=== PATIENT | female | born 1980 | race Caucasian/White ===

== ENCOUNTER 2024-11-12 09:22 | Emergency (ER) | payer OTHER, SELFPAY ==
[2024-11-12 09:29] VITALS: BP 124/84
[2024-11-12 10:22] VITALS: BMI 25.4
[2024-11-12 10:26] LABS: % Basophils 0.3 % (0-2); % Eosinophils 1.9 % (0-6); % Immature Granulocytes 0.2 % (0-0.5); % Lymphocytes 37.5 % (20.5-51.1); % Monocytes 6.7 % (1.7-9.3); % Neutrophils 53.4 % (42.2-75.2); Absolute Eosinophils 0.2 10^3/uL (0-0.7); Absolute Lymphocytes 3.5 10^3/uL (1.2-3.4); Absolute Monocytes 0.6 10^3/uL (0.1-0.6); Hematocrit 35.3 % (37.0-47.0); Hemoglobin 12.4 g/dL (12.0-16.0); Mean Corp Hgb Conc. 35.1 g/dL (33.0-37.0); Mean Corpuscular Volume 85.5 fL (81.0-99.0); Mean Platelet Volume 8.3 fL (7.4-10.4); Nucleated Red Blood Cells % 0 %; Platelet Count 359 10^3/uL (130-400); Red Blood Cell Count 4.13 10^6/uL (4.20-5.40); Red Cell Dist. Width 13.5 % (11.5-14.5); White Blood Cell Count 9.4 10^3/uL (4.8-10.8)
[2024-11-12] MEDS: TORADOL 15 MG IV (10:30)
--- NOTE | 2024-11-12 10:31 | ED.GENMED ---
History of Present Illness
General
Chief Complaint: Dental Problem
Source: patient and family
Exam Limitations: none
Time Seen by Provider: 11/12/24 09:56
Nursing documentation reviewed up to this point in time: agreed with
History of Present Illness
History of Present Illness:
The patient is a 44-year-old female presenting with facial swelling and pain. The patient reports that the swelling is primarily located around the parotid area and has been worsening despite taking antibiotics. The patient notes that the swelling
is likely related to a salivary gland issue, specifically concerning the parotid gland. No difficulty swallowing or breathing no fevers. She has not been using any sour candies or anything to stimulate the salivary glands at home. Patient has
been taking Keflex.
Past History
Past History
ED Past Medical History: Psychiatric (Depression), Other (Last seen at for back pain 11/2010. Mom states 'she's always had muscle spasms in her back.') and Other (Previous ruptured ovarian cysts, Migraines )
ED Past Surgical History: None
Social History
Tobacco: Former smoker
Alcohol: Occasional
Drug: None
Personal: Single
Living: with family
Employment: Employed (office work)
Family History
Family History: Other (Hypertension, hyperlipidemia, diabetes)
Review of Systems
Review of Systems
Allergies reviewed?: Yes
All Other Systems: ROS reviewed and negative except as documented in HPI and ROS
Phy Exam
Physical Exam
Physical Exam:
GENERAL: Alert , in no apparent distress
EYE: pupils equal and reactive
NECK: Supple, no significant adenopathy.
ENT: Swelling overlying the left mandibular region no redness or warmth minimal tenderness. Normal posterior pharynx and oral mucosa o/p clr, mmm.
CARDIAC: Regular rate and rhythm .
LUNGS: Clear breath sounds bilaterally, no acute respiratory distress, no wheezes/rales/rhonchi
ABDOMEN: Soft, without focal tenderness, no r/g, no cvat
NEUROLOGICAL: Alert and oriented, no focal neuro deficits
SKIN: Warm and dry, skin intact.
MUSCULOSKELETAL: No edema, well perfused.
PSYCH: Normal and appropriate interaction.
Course
Orders/Labs/Results
Orders:
Orders
11/12/24 10:14
CT Facial Bones W/ Iv Contrast Urgent
Comment:
Reason For Exam: left lower jaw pain swelling worsening for a few d
Ketorolac [Toradol] 15 mg IV NOW STA
Test Result ONCE
11/12/24 10:21
BMP [Basic Metabolic Panel] Urgent
Beta Hcg Serum Qualitative Screen [HCG, Serum Qualitative Screen] Urgent
CBC/With Diff [Complete Blood Count/With Diff] Urgent
11/12/24 12:41
Amoxicillin 875 mg/Clav 125 mg [Augmentin 875 mg/125 mg] 1 tablet PO NOW STA
Abnormal Lab Results
11/12/24
10:21
RBC 4.13 L 10^6/uL
(4.20-5.40)
Hct 35.3 L %
(37.0-47.0)
Absolute Lymphs (auto) 3.5 H 10^3/uL
(1.2-3.4)
11/12/24 10:21
11/12/24 10:21
Vital Signs
Initial and Last Documented VS:
Initial Vital Signs
Temp Pulse Resp BP Pulse Ox
98.2 F 94 20 124/84 98
11/12/24 09:29 11/12/24 09:29 11/12/24 09:29 11/12/24 09:29 11/12/24 09:29
Last Documented Vital Signs
Temp Pulse Resp BP Pulse Ox
98.5 F 76 20 110/76 97
11/12/24 10:47 11/12/24 10:47 11/12/24 10:47 11/12/24 10:47 11/12/24 10:48
MDM/Problems Addressed
MDM/Problems Addressed:
44-year-old female presenting to the emergency department today with concerns of ongoing swelling to the left mandibular region despite taking antibiotics over the past day or so. On arrival here vital signs are normal patient no distress
tolerating secretions normal posterior pharynx. Does have swelling to the left lateral mandibular region. No redness or warmth no tenderness. Normal dentition. CT scan without any significant complicating features or signs of deep space abscess.
Potential periapical infection. Plan to start on Augmentin otherwise close outpatient follow-up. Return precautions given.
*Pulse Oximetry
SaO2: 98
Oxygen Mode of Delivery: Room air
*Critical Care Note
Total Time (30-74mins, 75-104mins- exclusive of procedures): Not Applicable
ED Attending Note
-
Portions of this chart may have been created with voice recognition software.� Occasional wrong word or��sound alike� substitutions may have occurred due to the inherent limitations of voice recognition software.
Discharge Plan
Departure
Patient Disposition: Home (Routine Discharge)
Date of Disposition: 11/12/24
Time of Disposition: 12:43
Patient with high blood pressure during this ER visit?: No
Condition: Good
Covid-19: Not Applicable
Discharge Problem:
Left facial swelling
Instructions: Dental Pain (DC)
Prescriptions:
New
amoxicillin-pot clavulanate 875-125 mg tablet
1 tab PO BID 7 Days Qty: 14 0RF
oxycodone-acetaminophen [Endocet] 5-325 mg tablet
1 tab PO Q8H PRN (Reason: Pain) Qty: 7 0RF
No Action
norgestimate-ethinyl estradiol [Sprintec (28)] 1 TAB tablet
1 tab PO HS
Referrals:
Dayron Campbell MD [Family Provider, Internal Medicine]
Activity Restrictions/Additional Instructions:
You came to the emergency department today with concerns of facial swelling. Here you have a CT scan that did not show any emergent findings there was some swelling that was displayed that was consistent with the swelling you presented for.
Unclear specific cause. Please take the antibiotic in case there is bacterial infection otherwise please use sour candy or lemon drops to help with drainage of the salivary glands. Return for any worsening, new or concerning symptoms. Otherwise
follow-up closely as an outpatient.
Interventions
Interventions:
*Risk Screen - Suicide Last Done: 11/12/24 09:32
*General Assessment Last Done: 11/12/24 09:32
*Neglect/Abuse Screening Last Done: 11/12/24 09:32
*ED- Fall Risk Assessment Last Done: 11/12/24 10:23
*ED COVID-19 Vaccine History Last Done: 11/12/24 10:23
Discharge Date and Time
Print Language: WALLISIAN
[2024-11-12 10:42] LABS: HCG, Serum Qualitative Screen Negative
[2024-11-12 10:46] LABS: Blood Urea Nitrogen 9 mg/dl (7-17); Calcium 8.6 mg/dl (8.4-10.2); Carbon Dioxide 26 mmol/L (22-30); Chloride 105 mmol/L (98-107); Estimated Creatinine Clearance 91 ml/min; Glucose 76 mg/dl (70-99); Potassium 4.1 mmol/L (3.5-5.1); Sodium 137 mmol/L (135-145); eGFR > 60.00
[2024-11-12 10:47] VITALS: BP 110/76
[2024-11-12 11:00] VITALS: BP 111/74
[2024-11-12 11:25] VITALS: BP 123/86
[2024-11-12 12:00] VITALS: BP 115/72
== END 2024-11-12 13:25 | disposition home or self-care (01) ==
LOC: EMR 09:22
PROVIDERS: Physician Assistant; EMERGENCY PHYSICIAN Emergency Medicine; FAMILY PHYSICIAN Internal Medicine
DX: R22.0 Localized swelling, mass and lump, head (principal); K08.89 Other specified disorders of teeth and supporting structures; Z87.891 Personal history of nicotine dependence
CPT/HCPCS: 96374; 99284; 70487; 80048; 84703; 85025; Q9967

== ENCOUNTER 2024-11-12 17:19 | Emergency (ER) | payer OTHER, SELFPAY ==
[2024-11-12 17:29] VITALS: BP 137/93
--- NOTE | 2024-11-12 19:41 | ED.GENMED ---
History of Present Illness
General
Chief Complaint: Oral/Mouth Problem
Time Seen by Provider: 11/12/24 19:40
History of Present Illness
History of Present Illness:
TIME OF INITIAL EVALUATION
- 7:45 PM
REVIEW OF OLD RECORDS
- I reviewed the records from earlier today. She came in earlier this morning complaining of pain near the parotid. She had a white count that was normal and CT imaging that showed no soft tissue collection to suggest abscess there was possible
periapical infection involving the root of the left maxillary first molar she was placed on Augmentin.
CHIEF COMPLAINT(S)
Left side facial pain.
HISTORY OF PRESENT ILLNESS
The patient is a 44-year-old female presenting with persistent left side facial pain for approximately two weeks. Initially, a dentist evaluated the patient, performed dental X-rays which were unremarkable, and suspected temporomandibular joint
(TMJ) disorder, prescribing cyclobenzaprine and a steroid, both of which provided no significant relief after five days. The patient reports the pain is intense, burning, and constant, without a throbbing character. It appears to radiate down the
jaw, suggesting a dental-type pain. She visited urgent care yesterday and was diagnosed with a suspected salivary gland infection and initiated on antibiotics, which were later switched to amoxicillin and clavulanate (Augmentin). Earlier today, she
was seen in the emergency department, where imaging ruled out significant abscess formation. Ketorolac (Toradol) was administered, providing little pain relief. She was prescribed oxycodone/acetaminophen (Percocet) for home use, and despite this,
the pain persisted. The patient also took 600 mg of ibuprofen without relief. She denies any issues with narcotic use in the past and is open to receiving further pain management, including intravenous medication or a dental block. No significant
middle ear infection was observed upon ear examination, and she was found to have adequate oral intake.
ADDITIONAL HISTORY OBTAINED FROM SOURCES OTHER THAN THE PATIENT
According to previous ER records, the patient�s white blood cell count was normal, and the CT scan showed no large abscess formation, though there was a questionable start of an infection in the left upper region.
PHYSICAL EXAM
- Oral Examination: No significant signs of a dental abscess, severe swelling, or urgent need for hospital admission based on visual or palpable assessment.
- Ear Examination: No clear evidence of middle ear infection; reflexes observed are good, and overall appearance is slightly darker than on the right side.
-General: Well appearing in no distress
-HEENT: There is tenderness to palpation of the left molar/premolar region of the mandible but no palpable abscess
-Neurologic: Excellent strength all extremities, no obvious coordination deficits
-Psychiatric: Appropriate mental status, normal insight and judgement
-Extremities: Nontender, no edema, moves all extremities equally
-Skin: No rash, no lesions
PLAN
Administer additional intravenous Toradol for pain management and offer a one-time dose of hydromorphone (Dilaudid) for intense pain relief. Consider performing a dental block using lidocaine for localized pain control. Provide a referral for
follow-up with an load blocker (ENT specialist) and advise the patient to follow up with a dentist if symptoms persist.
DIFFERENTIAL DIAGNOSIS
The Differential Diagnosis includes, in no particular order and is not limited to:
1. Temporomandibular Joint Disorder (TMJ)
2. Salivary Gland Infection
3. Dental Abscess
4. Odontogenic Pain
5. Trigeminal Neuralgia
6. Sinusitis
7. Otitis Media
8. Neuralgia
9. Migraine
10. Atypical Facial Pain Syndrome
RADIOLOGY
- Considered CT imaging however the patient just had CT imaging earlier today
EKG
-
LABS
- White count 12.4, hemoglobin normal, chemistries unremarkable
UPDATE
- I did perform a posterior inferior alveolar dental block with bupivacaine and lidocaine. We also gave Toradol and Dilaudid as she appeared very uncomfortable.
SUMMARY OF ENCOUNTER
The patient, a 44-year-old female, presented to the emergency department with persistent left-sided facial pain that has been ongoing for approximately two weeks. She was previously seen by a dentist and evaluated for temporomandibular joint
disorder and suspected salivary gland infection. She was initially on antibiotics, which were switched to amoxicillin and clavulanate (Augmentin). She received imaging in the emergency department that ruled out significant abscess formation. Despite
receiving ketorolac and subsequently oxycodone/acetaminophen, her pain persisted, prompting further evaluation.
DISPOSITION
The patient is planned for discharge with instructions to follow up with a dentist for further evaluation and management of potential odontogenic pain, despite previous treatments providing limited relief.
EMERGENCY TREATMENTS ADMINISTERED
Ketorolac was administered earlier, and oxycodone/acetaminophen (Percocet) was prescribed for home use.
PLAN
The patient is advised to follow up with a dentist to assess dental causes of pain. A return to work is left to the patients discretion based on their pain management and recovery.
INDEPENDENT REVIEW OF LABS AND INTERPRETATION OF TESTS
My independent review of the complete blood count (CBC) indicates a slight elevation in white blood cell count, which could correlate with the patients pain or a mild infection process, as seen in the clinical context.
ADDITIONAL TESTING AND IMAGING CONSIDERED
No additional imaging was specified beyond the previously performed diagnostic imaging that ruled out significant abscess formation.
MEDICATION RECONCILIATION
The patient was on amoxicillin and clavulanate (Augmentin) and received ketorolac with minimal relief. She has a prescription for oxycodone/acetaminophen for pain management at home.
MEDICAL DECISION MAKING
1. Number & Complexity of Problems: The primary issue is persistent left-sided facial pain with a differential diagnosis that includes odontogenic pain, temporomandibular joint disorder, and possible mild infection.
2. Data Reviewed: Reviewed lab results showing an elevated white blood cell count and imaging ruling out significant abscess formation.
3. Risk: Consideration of admission was made, but outpatient management deemed appropriate based on stable vitals, the non-significant findings of imaging, and the plan for dental follow-up.
PATIENT EDUCATION AND COUNSELING
The patient was counseled on the importance of following up with a dental professional to further investigate potential dental causes of pain and assess for odontogenic contributions or other possible underlying conditions not fully addressed by
current management.
FOLLOW-UP INSTRUCTIONS
The patient was advised to arrange a follow-up appointment with a dentist for further evaluation and treatment of potential odontogenic-related pain. Additionally, a dental block can be considered if further pain management is required.
PATHOLOGIES TO CONSIDER
- Dental abscess or odontogenic infection
- Temporomandibular joint disorder
- Salivary gland infection
- Trigeminal neuralgia
- Atypical facial pain syndrome
The patient received Toradol, Dilaudid, and I performed dental block. Overall feels improved. Encouraged close follow-up with dentist.
Past History
Past History
ED Past Medical History: Psychiatric (Depression), Other (Last seen at for back pain 11/2010. Mom states 'she's always had muscle spasms in her back.') and Other (Previous ruptured ovarian cysts, Migraines )
ED Past Surgical History: None
Social History
Tobacco: Former smoker
Alcohol: Occasional
Drug: None
Personal: Single
Living: with family
Employment: Employed (office work)
Family History
Family History: Other (Hypertension, hyperlipidemia, diabetes)
Phy Exam
Physical Exam
Physical Exam:
See HPI
Course
Orders/Labs/Results
Orders:
Orders
11/12/24 19:53
0.9% Sodium Chloride 1000 ml [Nss] 1,000 ml IV BOLUS
HYDROmorphone [Dilaudid] 1 mg IV NOW STA
Ketorolac [Toradol] 15 mg IV NOW STA
Ondansetron Injectable [Zofran] 4 mg IV NOW STA
11/12/24 20:01
Basic Metabolic Panel Urgent
Complete Blood Count/With Diff Urgent
Abnormal Lab Results
11/12/24
20:01
WBC 12.4 H 10^3/uL
(4.8-10.8)
RBC 4.08 L 10^6/uL
(4.20-5.40)
Hct 35.6 L %
(37.0-47.0)
Absolute Neuts (auto) 8.6 H 10^3/uL
(1.4-6.5)
Absolute Monos (auto) 0.9 H 10^3/uL
(0.1-0.6)
11/12/24 20:01
11/12/24 20:01
Vital Signs
Initial and Last Documented VS:
Initial Vital Signs
Temp Pulse Resp BP Pulse Ox
36.7 C 95 20 137/93 99
11/12/24 17:29 11/12/24 17:29 11/12/24 17:29 11/12/24 17:29 11/12/24 17:29
Last Documented Vital Signs
Temp Pulse Resp BP Pulse Ox
36.7 C 76 18 133/81 96
11/12/24 17:29 11/12/24 21:20 11/12/24 21:20 11/12/24 21:20 11/12/24 21:20
Procedures
Dentalgia
Dental Block: In. Esme. Block
Bupivacaine 0.5%/Epi Dental cartridge administered?: No
Tooth Number: 18
Abcess drained?: No
Pt tolerated procedure well w/ no immediate adverse effects?: Yes
*Pulse Oximetry
SaO2: 99
Oxygen Mode of Delivery: Room air
Patient hypoxic: no
*Critical Care Note
Total Time (30-74mins, 75-104mins- exclusive of procedures): Not Applicable
ED Attending Note
-
Portions of this chart may have been created with voice recognition software.� Occasional wrong word or��sound alike� substitutions may have occurred due to the inherent limitations of voice recognition software.
Discharge Plan
Departure
Patient Disposition: Home (Routine Discharge)
Date of Disposition: 11/12/24
Time of Disposition: 22:15
Patient with high blood pressure during this ER visit?: Yes
Discharge Problem:
Pain, dental
Prescriptions:
No Action
norgestimate-ethinyl estradiol [Sprintec (28)] 1 TAB tablet
1 tab PO HS
amoxicillin-pot clavulanate 875-125 mg tablet
1 tab PO BID 7 Days Qty: 14 0RF
oxycodone-acetaminophen [Endocet] 5-325 mg tablet
1 tab PO Q8H PRN (Reason: Pain) Qty: 7 0RF
Referrals:
UNKNOWN - PT DOES,NOT KNOW [Unknown Provider]
Activity Restrictions/Additional Instructions:
We gave you Toradol as well as a dose of Dilaudid. I also did a posterior inferior alveolar block on the left side. I recommend that you follow-up with your dentist. Continue Augmentin.
Interventions
Interventions:
*Risk Screen - Suicide Last Done: 11/12/24 19:52
*General Assessment Last Done: 11/12/24 19:52
*Neglect/Abuse Screening Last Done: 11/12/24 19:52
*ED- Fall Risk Assessment Last Done: 11/12/24 19:52
*ED COVID-19 Vaccine History Last Done: 11/12/24 19:52
Discharge Date and Time
Print Language: SETS[place]
[2024-11-12 19:52] VITALS: BMI 25.4
[2024-11-12 19:56] VITALS: BP 130/77
[2024-11-12] MEDS: NSS 1000 IV (20:06)
[2024-11-12] MEDS: TORADOL 15 MG IV (20:07)
[2024-11-12 20:09] LABS: % Basophils 0.3 % (0-2); % Eosinophils 1.3 % (0-6); % Immature Granulocytes 0.3 % (0-0.5); % Lymphocytes 21.1 % (20.5-51.1); % Monocytes 7.4 % (1.7-9.3); % Neutrophils 69.6 % (42.2-75.2); Absolute Eosinophils 0.2 10^3/uL (0-0.7); Absolute Lymphocytes 2.6 10^3/uL (1.2-3.4); Absolute Monocytes 0.9 10^3/uL (0.1-0.6); Absolute Neutrophils 8.6 10^3/uL (1.4-6.5); Hematocrit 35.6 % (37.0-47.0); Hemoglobin 12.2 g/dL (12.0-16.0); Mean Corp Hgb Conc. 34.3 g/dL (33.0-37.0); Mean Corpuscular Hgb 29.9 pg (27.0-31.0); Mean Corpuscular Volume 87.3 fL (81.0-99.0); Mean Platelet Volume 8.2 fL (7.4-10.4); Nucleated Red Blood Cells % 0 %; Platelet Count 381 10^3/uL (130-400); Red Blood Cell Count 4.08 10^6/uL (4.20-5.40); Red Cell Dist. Width 13.3 % (11.5-14.5); White Blood Cell Count 12.4 10^3/uL (4.8-10.8)
[2024-11-12] MEDS: ZOFRAN 4 MG IV (20:10)
[2024-11-12] MEDS: DILAUDID 1 MG IV (20:13)
[2024-11-12 20:30] LABS: Blood Urea Nitrogen 12 mg/dl (7-17); Calcium 9.4 mg/dl (8.4-10.2); Carbon Dioxide 26 mmol/L (22-30); Chloride 105 mmol/L (98-107); Estimated Creatinine Clearance 91 ml/min; Glucose 90 mg/dl (70-99); Potassium 4.1 mmol/L (3.5-5.1); Sodium 139 mmol/L (135-145); eGFR > 60.00
[2024-11-12 21:20] VITALS: BP 133/81
== END 2024-11-12 22:31 | disposition home or self-care (01) ==
LOC: EMR 17:19
PROVIDERS: EMERGENCY PHYSICIAN Emergency Medicine; FAMILY PHYSICIAN Internal Medicine
DX: K08.89 Other specified disorders of teeth and supporting structures (principal); R51.9 Headache, unspecified; Z87.891 Personal history of nicotine dependence
CPT/HCPCS: 64400; 96374; 96375; 96361; 99284; 80048; 85025